=== PATIENT | male | born 1950 | race Caucasian/White ===

== ENCOUNTER 2020-06-12 12:56 | Outpatient (RCR) | payer MEDICARE, SELFPAY | END 2020-06-12 23:59 | LOC: IMMUN 12:56 | PROVIDERS: PCP Family Medicine; Referring Provider Family Medicine; Visit Provider Family Medicine | DX: Z23 Encounter for immunization (principal) | CPT/HCPCS: 0011A; 0012A; 91301 ==

== ENCOUNTER → 2024-07-18 | Outpatient (CLI) | payer MEDICARE, SELFPAY ==
[2024-07-18 10:39] LABS: Hematocrit 43.1 % (40-54); Hemoglobin 14.8 g/dL (13.0-16.5); Mean Corp Hgb Conc 34.3 g/dL (32-36); Mean Corpuscular Hgb 32.6 pg (27.0-32.0); Mean Corpuscular Volume 94.9 fL (80-94); Mean Platelet Vol. 9.3 fl (6.2-12.0); Platelet Count 233 K/mm3 (150-450); RBC Distribution Width CV 13.3 % (11.6-14.6); RBC Distribution Width SD 46.9 fl (35.1-43.9); Red Blood Count 4.54 M/mm3 (4.6-6.2); White Blood Count 6.2 K/mm3 (4.4-11.0)
[2024-07-18 13:10] LABS: Hemoglobin A1c 5.5 % (<=5.6)
[2024-07-18 13:23] LABS: ALB/GLOB Ratio 1.4 RATIO (0.9-2.4); AST(SGOT) 24 U/L (<=37); Alanine Aminotransfer ALT/SGPT 39 U/L (<=46); Albumin, Serum 4.2 g/dL (3.4-4.8); Alkaline Phosphatase 83 U/L (40-129); Anion Gap 12 (5-15); BUN 14 mg/dL (4-19); BUN/Creat Ratio 14.7 RATIO (10-20); Calcium,Total 9.4 mg/dL (7.6-11.0); Carbon Dioxide 22.7 mmol/L (21.0-32.0); Chloride 106 mmol/L (98-108); Cholesterol 152 mg/dL (<=200); Creatinine, Serum 0.92 mg/dL (0.70-1.20); EST Glomerular Filtration Rate 88 (>60); Glucose 91 mg/dL (70-99); High Density Lipoprotein 38 mg/dL; Low Density Lipoprotein Calc. 92 mg/dL; Potassium 4.3 mmol/L (3.3-5.1); Protein, Total 7.1 g/dL (5.9-8.4); Sodium Level 140 mmol/L (133-145); Triglycerides 113 mg/dL; Very Low Density Lipoprotein 23 mg/dL (5-40); Vitamin B12 582 pg/mL (180-914); cholesterol:hdl ratio screen 4.04
[2024-07-20 12:08] LABS: Vitamin D 1,25-Dihydroxy 33.7 pg/mL (24.8-81.5)
== END | disposition home or self-care (01) ==
LOC: MTLAB 08:36
PROVIDERS: PCP Family Medicine; Referring Provider Psychiatry & Neurology Neurology; Visit Provider Psychiatry & Neurology Neurology
DX: E11.42 Type 2 diabetes mellitus with diabetic polyneuropathy (principal)
CPT/HCPCS: 36415; 80053; 80061; 82607; 82652; 82747; 83036; 83883; 84425; 84439; 84443; 85014; 85027

== ENCOUNTER 2024-10-09 15:15 | Outpatient (RCR) | payer MEDICARE, SELFPAY ==
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
[2024-09-19 14:19] VITALS: BP 119/78; PULSE 75; RESP 18; TEMP 35.9; BMI 34.0
--- NOTE | 2024-09-20 09:20 | WC ---
PHOTO 09/19/24 LEFT BACK
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
[2024-09-26 14:20] VITALS: BP 118/67; PULSE 62; RESP 18; TEMP 36.1; BMI 34.0
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
--- NOTE | 2024-09-26 15:43 | WC ---
PHOTO 09/26/24 L BACK
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
[2024-10-03 14:53] VITALS: BP 103/61; PULSE 68; RESP 16; TEMP 36.1; BMI 34.0
--- NOTE | 2024-10-04 08:48 | WC ---
PHOTO 10/04/24 LT BACK
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
[2024-10-09 15:04] VITALS: BP 111/73; PULSE 94; RESP 15; TEMP 36.4; BMI 34.0
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
--- NOTE | 2024-10-10 14:05 | WC ---
PHOTO 10/09/24 LEFT BACK
== END 2024-10-16 23:59 | disposition home or self-care (01) ==
LOC: WC 15:15
PROVIDERS: Visit Provider Surgery
DX: E11.622 Type 2 diabetes mellitus with other skin ulcer (principal); L98.422 Non-pressure chronic ulcer of back with fat layer exposed; I48.91 Unspecified atrial fibrillation; E11.42 Type 2 diabetes mellitus with diabetic polyneuropathy; Z79.01 Long term (current) use of anticoagulants; E78.5 Hyperlipidemia, unspecified; G47.33 Obstructive sleep apnea (adult) (pediatric); I10 Essential (primary) hypertension; Z79.85 Long-term (current) use of injectable non-insulin antidiabetic drugs; Z94.5 Skin transplant status; Z79.890 Hormone replacement therapy; E03.9 Hypothyroidism, unspecified; Z79.899 Other long term (current) drug therapy; L90.5 Scar conditions and fibrosis of skin
CPT/HCPCS: 11042; 11104; 71046; 71100; 87070; 87075; 87077; 87186; 87205; 88305; 99213; G0463

== ENCOUNTER → 2024-10-19 | Outpatient (CLI) | payer MEDICARE, SELFPAY | END | disposition home or self-care (01) | LOC: LABSPEC 14:03 | PROVIDERS: Referring Provider Surgery Plastic and Reconstructive Surgery; Visit Provider Surgery Plastic and Reconstructive Surgery | DX: L90.5 Scar conditions and fibrosis of skin (principal); Q77 Osteochondrodysplasia with defects of growth of tubular bones and spine; L08.9 Local infection of the skin and subcutaneous tissue, unspecified | CPT/HCPCS: 88304; 88305; 88311 ==